=== PATIENT | female | born 1965 | race Caucasian/White ===

== ENCOUNTER 2019-06-01 21:00 | Inpatient (IN) | payer SELFPAY ==
[~2019-06-01] VITALS: Ht 152.4 cm; Wt 59.0 kg
[~2019-06-01 21:00] MED LIST: ATROPINE 1 MG/10 ML DISP.SYRINGE. ONE; EPINEPHrine SYRINGE 1 MG/10 ML SYRINGE ONE; SODIUM BICARB ADULT 8.4% 50 MEQ/50 ML DISP.SYRIN. ONE
[2019-06-01 21:04] VITALS: BP 81/49
[2019-06-01] MEDS ORDERED: NOREPINEPHRIN 8MG/250ML PREMIX 250 ML IV PRN (21:45)
[2019-06-01 21:47] LABS: BASE EXCESS COOX -18 mmol/L (-3-3); HCO3 COOX 8 mmol/L (21-28); METHEMOGLOBIN 0.5 % (0.0-1.9); OXYHEMOGLOBIN 98.6 %; PO2 COOX 312 mmHg (75-108); SAT O2 COOX 99 % (92-99)
[2019-06-01 21:52] LABS: BASO % 0 % (0-3); EOS % 0 % (0-3); HEMATOCRIT 40.2 % (36.0-47.0); HEMOGLOBIN 13.4 g/dL (12.0-15.5); LYMPH # 0.5 x10^3/uL (1.0-4.8); LYMPH % 4 % (24-48); MEAN CORPUSCULAR HEMOGLOBIN 32 pg (25-35); MEAN CORPUSCULAR HGB CONC 33 g/dL (31-37); MEAN CORPUSCULAR VOLUME 96 fL (79-100); MONO # 0.7 x10^3/uL (0.0-1.1); MONO % 6 % (0-9); NEUT # 10.5 x10^3uL (1.8-7.7); NEUT % 90 % (31-73); PLATELET COUNT 276 x10^3/uL (140-400); RED BLOOD COUNT 4.17 x10^6/uL (3.50-5.40); RED CELL DISTRIBUTION WIDTH 14.6 % (11.5-14.5); WHITE BLOOD COUNT 11.8 x10^3/uL (4.0-11.0)
[2019-06-01 22:03] LABS: PROTHROMBIN TIME PATIENT 23.8 SEC (11.7-14.0)
[2019-06-01 22:09] LABS: ALBUMIN 3.2 g/dL (3.4-5.0); ALBUMIN/GLOBULIN RATIO 0.8 (1.0-1.7); CALCIUM 8.4 mg/dL (8.5-10.1); TOTAL BILIRUBIN 1.8 mg/dL (0.2-1.0); TOTAL PROTEIN 7.4 g/dL (6.4-8.2)
[2019-06-01 22:15] LABS: POTASSIUM 6.2 mmol/L (3.5-5.1)
[2019-06-01 22:24] LABS: PCO2 COOX 19 mmHg (35-46)
[2019-06-01 22:28] LABS: % LYMPHS 3 % (24-48); % MONOS 9 % (0-10); % SEGS 88 % (35-66); ANISOCYTOSIS SLIGHT; PLATELET CLUMP PRESENT; PLT ESTIMATE ADEQUATE (ADEQUATE); POLYCHROMASIA SLIGHT
[2019-06-01] MEDS ORDERED: ONDANSETRON PF 4 MG/2 ML VIAL. IV ONE (22:30)
[2019-06-01] MEDS ORDERED: PIPERACILLIN/TAZOBACTAM 4.5 GM in IV NORMAL SALINE 100ML 100 ML IV ONE (22:30)
[2019-06-01] MEDS ORDERED: IV NORMAL SALINE 1000ML BAG 1,000 ML IV SCH ×2 (22:30→23:00)
[2019-06-01] MEDS ORDERED: CALCIUM GLUCONATE 1,000 MG/10 ML VIAL. IVP ONE (23:00)
[2019-06-01] MEDS ORDERED: DEXTROSE 50% 25 GM / 50ML DISP.SYRIN. IV ONE (23:00)
[2019-06-01] MEDS ORDERED: MIDAZOLAM HCL/PF 5 MG/5 ML VIAL. IV ONE (23:00)
[2019-06-01] MEDS ORDERED: INSULIN REGULAR 100 UNIT/ML 3ML VIAL. IV ONE (23:00)
[2019-06-01] MEDS ORDERED: SODIUM BICARB ADULT 8.4% 50 MEQ/50 ML DISP.SYRIN. IV ONE (23:00)
[2019-06-01] MEDS ORDERED: 0.9 % SOD CHL for STERILE FIELD 10 ML DISP.SYRIN. ONE (23:00)
--- NOTE | 2019-06-01 23:03 | RAD ---
AP chest. HISTORY: Sepsis AP view was taken of the chest. The heart is enlarged. There is a small left pleural effusion with a moderate right pleural effusion. There is vascular congestion. There is airspace disease on the right more than the left from pneumonia or pulmonary edema. NG tube extends into the stomach. Endotracheal tube is at the bottom of the clavicles at T3. IMPRESSION: 1. Congestive heart failure. 2. Pulmonary edema versus infiltrates right lung. Electronically signed by: Latrell Barnes MD (06/01/2019 11:00 PM) [facility]
[2019-06-01 23:21] LABS: BARBITURATES NEG (NEG); BENZODIAZEPINES NEG (NEG); CANNABINOIDS NEG (NEG); COCAINE NEG (NEG); METHADONE NEG (NEG); OPIATES NEG (NEG); PHENCYCLIDINE NEG (NEG)
[2019-06-01 23:23] LABS: AMPHETAMINE/METHAMPHETAMINE NEG (NEG)
--- NOTE | 2019-06-02 00:25 | PHYS DOC ---
Past Medical History Past Medical History: Hypertension Additional Past Surgical Histo: heart valve replacement Alcohol Use: Occasionally Drug Use: None Adult General Chief Complaint Chief Complaint: ALTERED MENTAL STATUS HPI HPI Patient is a 54-year-old female who presents secondary to progressive illness over the last 3 weeks. Patient apparently has not felt well for several weeks. She's had diarrhea. There's been no reported fever. Today she became profoundly short of breath. Patient is really unable to provide much in the way of any history secondary to the critical nature of the patient's illness[] Review of Systems Review of Systems Review of systems is unobtainable secondary to patient's critical illness Current Medications Current Medications Current Medications Medications (Trade) Dose Ordered Sig/Freeman Start Time Stop Time Status Last Admin Dose Admin Norepinephrine Bitartrate 250 ml @ 0 mls/hr CONT PRN 06/01/19 21:45 06/01/19 22:18 9.4 MLS/HR Allergies Allergies Allergies Coded Allergies Type Severity Reaction Last Updated Verified aspirin Allergy Intermediate 06/01/19 Yes Physical Exam Physical Exam Constitutional: Well developed, well nourished, no acute distress, non-toxic appearance. [] HENT: Normocephalic, atraumatic, bilateral external ears normal, oropharynx moist, no oral exudates, nose normal. [] Eyes: PERRLA, EOMI, conjunctiva normal, no discharge. [] Neck: Normal range of motion, no tenderness, supple, no stridor. [] Cardiovascular:Heart rate regular rhythm, no murmur [] Lungs & Thorax: Bilateral breath sounds clear to auscultation [] Abdomen: Bowel sounds normal, soft, no tenderness, no masses, no pulsatile masses. [] Skin: Warm, dry, no erythema, no rash. [] Back: No tenderness, no CVA tenderness. [] Extremities: No tenderness, no cyanosis, no clubbing, ROM intact, no edema. [] Neurologic: Alert and oriented X 3, normal motor function, normal sensory function, no focal deficits noted. [] Psychologic: Affect normal, judgement normal, mood normal. [] Current Patient Data Vital Signs Vital Signs Date Time Temp Pulse Resp B/P (MAP) Pulse Ox O2 Delivery O2 Flow Rate FiO2 06/01/19 22:16 96 Ventilator 06/01/19 21:04 97.2 118 16 81/49 (60) 15.0 97.2 Lab Values Laboratory Tests Test 06/01/19 21:20 06/01/19 21:30 06/01/19 21:33 Urine Opiates Screen Neg (NEG) Urine Methadone Screen Neg (NEG) Urine Barbiturates Neg (NEG) Urine Phencyclidine Screen Neg (NEG) Urine Amphetamine/Methamphetamine Neg (NEG) Urine Benzodiazepines Screen Neg (NEG) Urine Cocaine Screen Neg (NEG) Urine Cannabinoids Screen Neg (NEG) Urine Ethyl Alcohol Neg (NEG) White Blood Count 11.8 x10^3/uL (4.0-11.0) H Red Blood Count 4.17 x10^6/uL (3.50-5.40) Hemoglobin 13.4 g/dL (12.0-15.5) Hematocrit 40.2 % (36.0-47.0) Mean Corpuscular Volume 96 fL (79-100) Mean Corpuscular Hemoglobin 32 pg (25-35) Mean Corpuscular Hemoglobin Concent 33 g/dL (31-37) Red Cell Distribution Width 14.6 % (11.5-14.5) H Platelet Count 276 x10^3/uL (140-400) Neutrophils (%) (Auto) 90 % (31-73) H Lymphocytes (%) (Auto) 4 % (24-48) L Monocytes (%) (Auto) 6 % (0-9) Eosinophils (%) (Auto) 0 % (0-3) Basophils (%) (Auto) 0 % (0-3) Neutrophils # (Auto) 10.5 x10^3uL (1.8-7.7) H Lymphocytes # (Auto) 0.5 x10^3/uL (1.0-4.8) L Monocytes # (Auto) 0.7 x10^3/uL (0.0-1.1) Eosinophils # (Auto) 0.0 x10^3/uL (0.0-0.7) Basophils # (Auto) 0.0 x10^3/uL (0.0-0.2) Segmented Neutrophils % 88 % (35-66) H Lymphocytes % 3 % (24-48) L Monocytes % 9 % (0-10) Platelet Estimate Adequate (ADEQUATE) Platelet Clumps, EDTA Present Polychromasia Slight Anisocytosis Slight Prothrombin Time 23.8 SEC (11.7-14.0) H Prothrombin Time INR 2.2 (0.8-1.1) H Sodium Level 125 mmol/L (136-145) L Potassium Level 6.2 mmol/L (3.5-5.1) *H Chloride Level 86 mmol/L (98-107) L Carbon Dioxide Level 9 mmol/L (21-32) *L Anion Gap 30 (6-14) H Blood Urea Nitrogen 120 mg/dL (7-20) H Creatinine 5.0 mg/dL (0.6-1.0) H Estimated GFR (Cockcroft-Gault) 9.0 BUN/Creatinine Ratio 24 (6-20) H Glucose Level 140 mg/dL (70-99) H Lactic Acid Level 9.1 mmol/L (0.4-2.0) *H Calcium Level 8.4 mg/dL (8.5-10.1) L Total Bilirubin 1.8 mg/dL (0.2-1.0) H Aspartate Amino Transferase (AST) 671 U/L (15-37) H Alanine Aminotransferase (ALT) 621 U/L (14-59) H Alkaline Phosphatase 119 U/L (46-116) H Creatine Kinase 445 U/L (26-192) H Troponin I Quantitative 9.191 ng/mL (0.000-0.055) Total Protein 7.4 g/dL (6.4-8.2) Albumin 3.2 g/dL (3.4-5.0) L Albumin/Globulin Ratio 0.8 (1.0-1.7) L Procalcitonin 0.42 ng/mL (0.00-0.10) H O2 Saturation 99 % (92-99) Arterial Blood pH 7.22 (7.35-7.45) L Arterial Blood pCO2 at Patient Temp 19 mmHg (35-46) *L Arterial Blood pO2 at Patient Temp 312 mmHg (75-108) H Arterial Blood HCO3 8 mmol/L (21-28) L Arterial Blood Base Excess -18 mmol/L (-3-3) L Alveolar-arterial Oxygen Gradient mmHg (0.0-20.0) Oxyhemoglobin 98.6 % Methemoglobin 0.5 % (0.0-1.9) Carbon Monoxide, Quantitative 0.1 % (0.0-1.9) Laboratory Tests 06/01/19 21:30 Laboratory Tests 06/01/19 21:30 EKG EKG [] Radiology/Procedures Radiology/Procedures [] Course & Med Decision Making Course & Med Decision Making Pertinent Labs and Imaging studies reviewed. (See chart for details) [] Dragon Disclaimer Dragon Disclaimer This electronic medical record was generated, in whole or in part, using a voice recognition dictation system. Departure Departure Impression: Primary Impression: Renal failure Additional Impressions: Respiratory failure Elevated troponin Disposition: ADMITTED INPATIENT Admitting Physician: PANCHO Condition: CRITICAL Referrals: NO PCP (PCP) Problem Qualifiers Primary Impression: Renal failure Renal failure chronicity: acute Acute renal failure type: unspecified Qualified Codes: N17.9 - Acute kidney failure, unspecified Additional Impressions: Respiratory failure Chronicity: acute Respiratory failure complication: hypoxia Qualified Codes: J96.01 - Acute respiratory failure with hypoxia RAHUL VALDEZ DO Jun 02, 2019 00:25
--- NOTE | 2019-06-02 01:00 | NUR ---
patient arrived on unit accompanied by ED staff. ET tube in place and pt placed on ventilator by RT. Pt had HR of 86 on monitor and defib pads had been applied by ED staff. Levophed running at 5mcg/kg/min, epi drip started at 0118. Blood Pressure could not be obtained and pulse had to be obtained through doppler of femoral artery. Pt went into cardiac arrest at 0144 with an initial rhythm of PEA progressing into asystole. CPR performed, 2 rounds of epi given, 1 amp of bicarb given and return of spontaneous circulation achieved at 0148. Dr. Murdock spoke to patient's who stated he did not want any life saving measures taken if the patient went into cardiac arrest again. DNR order entered by Dr. Murdock. MTN contacted. Patient maintained a pulse until 0229 when she went into asystole. Patient was pronounced at 0230, confirmed by Chavo Mondragon RN, and Kaley Johnson RN. Patient's at the bedside at the time of patient's .
[2019-06-02] MEDS ORDERED: ETOMIDATE 20 MG/10 ML VIAL. IV ONE (01:34)
[2019-06-02] MEDS ORDERED: SUCCINYLCHOLINE 200 MG/10 ML VIAL. ONE (01:35)
--- NOTE | 2019-06-02 11:02 | PDOC3 ---
Discharge Summary Date of Admission: Jun 02, 2019 Date of Discharge: Jun 02, 2019 Admitting Diagnosis comment: Impression: Renal failure Respiratory failure Elevated troponin PT NOT SEEN BY ME, ADMITTED TO ICU D/W RN Brief Hospital Course Ms. Thayer is a 54 old [sex] who presented with [ ] CONDITION AT DISCHARGE: / Discharge Medications Current Medications Piperacillin Sod/ Tazobactam Sod 4.5 gm/Sodium Chloride 100 ml @ 200 mls/hr 1X ONCE IV Last administered on 06/01/19at 22:30; Start 06/01/19 at 22:30; Stop 06/01/19 at 22:59; Status DC Norepinephrine Bitartrate 250 ml @ 0 mls/hr CONT PRN IV PER PROTOCOL Last administered on 06/01/19at 22:18; Start 06/01/19 at 21:45; Stop 06/02/19 at 10:10; Status DC Sodium Chloride 1,000 ml @ 1,000 mls/hr Q1H IV Last administered on 06/01/19at 22:30; Start 06/01/19 at 22:30; Stop 06/02/19 at 00:15; Status DC Ondansetron HCl (Zofran) 4 mg 1X ONCE IV Last administered on 06/01/19 22:58; Start 06/01/19 at 22:30; Stop 06/01/19 at 22:31; Status DC Midazolam HCl (Versed) 5 mg 1X ONCE IV Last administered on 06/01/19 22:53; Start 06/01/19 at 23:00; Stop 06/01/19 at 23:01; Status DC Sodium Bicarbonate (Sodium Bicarb Adult 8.4% Syr) 50 meq 1X ONCE IV Last administered on 06/01/19 22:53; Start 06/01/19 at 23:00; Stop 06/01/19 at 23:01; Status DC Calcium Gluconate (Calcium Gluconate) 1,000 mg 1X ONCE IVP Last administered on 06/01/19 22:52; Start 06/01/19 at 23:00; Stop 06/01/19 at 23:01; Status DC Dextrose (Dextrose 50%-Water Syringe) 25 gm 1X ONCE IV Last administered on 06/01/19 22:51; Start 06/01/19 at 23:00; Stop 06/01/19 at 23:01; Status DC Insulin Human Regular (HumuLIN R VIAL) 10 unit 1X ONCE IV Last administered on 06/01/19at 22:57; Start 06/01/19 at 23:00; Stop 06/01/19 at 23:01; Status DC Sodium Chloride 1,000 ml @ 150 mls/hr Q6H40M IV Last administered on 06/01/19at 23:09; Start 06/01/19 at 23:00; Stop 06/02/19 at 10:10; Status DC Sodium Chloride (NORMAL SALINE FLUSH for STERILE FIELD) 10 ml STK-MED ONCE .ROUTE ; Start 06/01/19 at 23:00; Stop 06/01/19 at 23:01; Status DC Epinephrine HCl 4 mg/Sodium Chloride 254 ml @ 22.46 mls/ hr CONT PRN IV SEE I/O RECORD Last administered on 06/02/19at 01:18; Start 06/02/19 at 01:00; Stop 06/02/19 at 10:10; Status DC Etomidate (Amidate) 20 mg STK-MED ONCE IV ; Start 06/02/19 at 01:34; Stop 06/02/19 at 01:35; Status DC Succinylcholine Chloride (Anectine) 200 mg STK-MED ONCE .ROUTE ; Start 06/02/19 at 01:35; Stop 06/02/19 at 01:36; Status DC Epinephrine HCl (EPINEPHrine SYRINGE) 3 mg STK-MED ONCE .ROUTE ; Start 06/01/19 at 12:00; Stop 06/02/19 at 10:43; Status DC Sodium Bicarbonate (Sodium Bicarb Adult 8.4% Syr) 50 meq STK-MED ONCE .ROUTE ; Start 06/01/19 at 12:00; Stop 06/02/19 at 10:43; Status DC Atropine Sulfate (ATROPINE 1mg SYRINGE) 2 mg STK-MED ONCE .ROUTE ; Start 06/01/19 at 12:00; Stop 06/02/19 at 10:45; Status DC Epinephrine HCl (EPINEPHrine SYRINGE) 1 mg STK-MED ONCE .ROUTE ; Start 06/01/19 at 12:00; Stop 06/02/19 at 10:45; Status DC Vital Signs Vital Signs Date Time Temp Pulse Resp B/P (MAP) Pulse Ox O2 Delivery O2 Flow Rate FiO2 06/02/19 01:30 86 20 95 Ventilator 06/02/19 01:00 95.7 95.7 06/01/19 21:04 81/49 (60) 15.0 Labs Laboratory Tests Test 06/01/19 21:20 06/01/19 21:30 06/01/19 21:33 Urine Opiates Screen Neg (NEG) Urine Methadone Screen Neg (NEG) Urine Barbiturates Neg (NEG) Urine Phencyclidine Screen Neg (NEG) Urine Amphetamine/Methamphetamine Neg (NEG) Urine Benzodiazepines Screen Neg (NEG) Urine Cocaine Screen Neg (NEG) Urine Cannabinoids Screen Neg (NEG) Urine Ethyl Alcohol Neg (NEG) White Blood Count 11.8 x10^3/uL (4.0-11.0) Red Blood Count 4.17 x10^6/uL (3.50-5.40) Hemoglobin 13.4 g/dL (12.0-15.5) Hematocrit 40.2 % (36.0-47.0) Mean Corpuscular Volume 96 fL (79-100) Mean Corpuscular Hemoglobin 32 pg (25-35) Mean Corpuscular Hemoglobin Concent 33 g/dL (31-37) Red Cell Distribution Width 14.6 % (11.5-14.5) Platelet Count 276 x10^3/uL (140-400) Neutrophils (%) (Auto) 90 % (31-73) Lymphocytes (%) (Auto) 4 % (24-48) Monocytes (%) (Auto) 6 % (0-9) Eosinophils (%) (Auto) 0 % (0-3) Basophils (%) (Auto) 0 % (0-3) Neutrophils # (Auto) 10.5 x10^3uL (1.8-7.7) Lymphocytes # (Auto) 0.5 x10^3/uL (1.0-4.8) Monocytes # (Auto) 0.7 x10^3/uL (0.0-1.1) Eosinophils # (Auto) 0.0 x10^3/uL (0.0-0.7) Basophils # (Auto) 0.0 x10^3/uL (0.0-0.2) Segmented Neutrophils % 88 % (35-66) Lymphocytes % 3 % (24-48) Monocytes % 9 % (0-10) Platelet Estimate Adequate (ADEQUATE) Platelet Clumps, EDTA Present Polychromasia Slight Anisocytosis Slight Prothrombin Time 23.8 SEC (11.7-14.0) Prothromb Time International Ratio 2.2 (0.8-1.1) Sodium Level 125 mmol/L (136-145) Potassium Level 6.2 mmol/L (3.5-5.1) Chloride Level 86 mmol/L (98-107) Carbon Dioxide Level 9 mmol/L (21-32) Anion Gap 30 (6-14) Blood Urea Nitrogen 120 mg/dL (7-20) Creatinine 5.0 mg/dL (0.6-1.0) Estimated GFR (Cockcroft-Gault) 9.0 BUN/Creatinine Ratio 24 (6-20) Glucose Level 140 mg/dL (70-99) Lactic Acid Level 9.1 mmol/L (0.4-2.0) Calcium Level 8.4 mg/dL (8.5-10.1) Total Bilirubin 1.8 mg/dL (0.2-1.0) Aspartate Amino Transf (AST/SGOT) 671 U/L (15-37) Alanine Aminotransferase (ALT/SGPT) 621 U/L (14-59) Alkaline Phosphatase 119 U/L (46-116) Creatine Kinase 445 U/L (26-192) Troponin I Quantitative 9.191 ng/mL (0.000-0.055) Total Protein 7.4 g/dL (6.4-8.2) Albumin 3.2 g/dL (3.4-5.0) Albumin/Globulin Ratio 0.8 (1.0-1.7) Procalcitonin 0.42 ng/mL (0.00-0.10) O2 Saturation 99 % (92-99) Arterial Blood pH 7.22 (7.35-7.45) Arterial Blood pCO2 at Patient Temp 19 mmHg (35-46) Arterial Blood pO2 at Patient Temp 312 mmHg (75-108) Arterial Blood HCO3 8 mmol/L (21-28) Arterial Blood Base Excess -18 mmol/L (-3-3) Alveolar-arterial Oxygen Gradient mmHg (0.0-20.0) Oxyhemoglobin 98.6 % Methemoglobin 0.5 % (0.0-1.9) Carbon Monoxide, Quantitative 0.1 % (0.0-1.9) Laboratory Tests Test 06/01/19 21:20 06/01/19 21:30 06/01/19 21:33 Urine Opiates Screen Neg (NEG) Urine Methadone Screen Neg (NEG) Urine Barbiturates Neg (NEG) Urine Phencyclidine Screen Neg (NEG) Urine Amphetamine/Methamphetamine Neg (NEG) Urine Benzodiazepines Screen Neg (NEG) Urine Cocaine Screen Neg (NEG) Urine Cannabinoids Screen Neg (NEG) Urine Ethyl Alcohol Neg (NEG) White Blood Count 11.8 x10^3/uL (4.0-11.0) Red Blood Count 4.17 x10^6/uL (3.50-5.40) Hemoglobin 13.4 g/dL (12.0-15.5) Hematocrit 40.2 % (36.0-47.0) Mean Corpuscular Volume 96 fL (79-100) Mean Corpuscular Hemoglobin 32 pg (25-35) Mean Corpuscular Hemoglobin Concent 33 g/dL (31-37) Red Cell Distribution Width 14.6 % (11.5-14.5) Platelet Count 276 x10^3/uL (140-400) Neutrophils (%) (Auto) 90 % (31-73) Lymphocytes (%) (Auto) 4 % (24-48) Monocytes (%) (Auto) 6 % (0-9) Eosinophils (%) (Auto) 0 % (0-3) Basophils (%) (Auto) 0 % (0-3) Neutrophils # (Auto) 10.5 x10^3uL (1.8-7.7) Lymphocytes # (Auto) 0.5 x10^3/uL (1.0-4.8) Monocytes # (Auto) 0.7 x10^3/uL (0.0-1.1) Eosinophils # (Auto) 0.0 x10^3/uL (0.0-0.7) Basophils # (Auto) 0.0 x10^3/uL (0.0-0.2) Segmented Neutrophils % 88 % (35-66) Lymphocytes % 3 % (24-48) Monocytes % 9 % (0-10) Platelet Estimate Adequate (ADEQUATE) Platelet Clumps, EDTA Present Polychromasia Slight Anisocytosis Slight Prothrombin Time 23.8 SEC (11.7-14.0) Prothromb Time International Ratio 2.2 (0.8-1.1) Sodium Level 125 mmol/L (136-145) Potassium Level 6.2 mmol/L (3.5-5.1) Chloride Level 86 mmol/L (98-107) Carbon Dioxide Level 9 mmol/L (21-32) Anion Gap 30 (6-14) Blood Urea Nitrogen 120 mg/dL (7-20) Creatinine 5.0 mg/dL (0.6-1.0) Estimated GFR (Cockcroft-Gault) 9.0 BUN/Creatinine Ratio 24 (6-20) Glucose Level 140 mg/dL (70-99) Lactic Acid Level 9.1 mmol/L (0.4-2.0) Calcium Level 8.4 mg/dL (8.5-10.1) Total Bilirubin 1.8 mg/dL (0.2-1.0) Aspartate Amino Transf (AST/SGOT) 671 U/L (15-37) Alanine Aminotransferase (ALT/SGPT) 621 U/L (14-59) Alkaline Phosphatase 119 U/L (46-116) Creatine Kinase 445 U/L (26-192) Troponin I Quantitative 9.191 ng/mL (0.000-0.055) Total Protein 7.4 g/dL (6.4-8.2) Albumin 3.2 g/dL (3.4-5.0) Albumin/Globulin Ratio 0.8 (1.0-1.7) Procalcitonin 0.42 ng/mL (0.00-0.10) O2 Saturation 99 % (92-99) Arterial Blood pH 7.22 (7.35-7.45) Arterial Blood pCO2 at Patient Temp 19 mmHg (35-46) Arterial Blood pO2 at Patient Temp 312 mmHg (75-108) Arterial Blood HCO3 8 mmol/L (21-28) Arterial Blood Base Excess -18 mmol/L (-3-3) Alveolar-arterial Oxygen Gradient mmHg (0.0-20.0) Oxyhemoglobin 98.6 % Methemoglobin 0.5 % (0.0-1.9) Carbon Monoxide, Quantitative 0.1 % (0.0-1.9) Allergies Allergies Coded Allergies Type Severity Reaction Last Updated Verified aspirin Allergy Intermediate 06/01/19 Yes Disposition/Orders: THEO SCHULER MD Jun 02, 2019 11:01
== END 2019-06-02 02:30 | disposition expired | DRG 208 ==
LOC: ER 21:00 → 1 WEST ICU 22:24
PROVIDERS: ADMIT Internal Medicine; ATTEND Internal Medicine
PROC: 5A1935Z Respiratory Ventilation, Less than 24 Consecutive Hours (ICD-10-PCS; principal; 2019-06-01)
DX: J96.01 Acute respiratory failure with hypoxia (principal); N17.9 Acute kidney failure, unspecified; I10 Essential (primary) hypertension; R19.7 Diarrhea, unspecified; R79.89 Other specified abnormal findings of blood chemistry; Z95.2 Presence of prosthetic heart valve
CPT/HCPCS: 31500; 31720; 36415; 36600; 51702; 71045; 80053; 80307; 82550; 82805; 83605; 84145; 84484; 85007; 85025; 85610; 87040; 92950; 94002; 94760; 96365; 96368; 96375; J0171; J0461; J0610; J1815; J2250; J2405; J2543; J7030; J7042; J7050; 99285-25